=== PATIENT | female | born 1985 ===

== ENCOUNTER 2025-03-09 20:39 | Emergency (ER) | payer BC, SELFPAY ==
--- OUTSIDE RECORDS SUMMARY | 2025-02-02 15:48 | XMS_ITS | Encounter Summary ---
Author Organization [facility] Address [address] [place] [address] Care Team Providers Care English Drawer Name Role Phone Rboerta Russo APRN, C.N.P., D.N.P. Primary Car e Provider Reason for Visit * Reason Comments Abdominal Pain Pt coming in with se mami abdominal pain that started today. Pt nauseous and vomiting. Pain is upper mid abdomen that is consistent. Encounter Details Date Type Department Care Team ([facility] st Contact Info) Description 02/02/2025 3:48 PM CDT - 02/02/2025 8:47 PM CDT Emergency [facility] [address] [place] [address] [phone] Kvng Mares M.D. [address] [place] [phone] Wilberto Jackson M.D. [address] [place] [phone] Gastritis Acute (Primary Dx); Nausea And Vomiting; Dehydration Discharge Disposition: Home or Self Care Social History Tobacco Use Types Packs/Day Years Used Date Smoking Tobacco: Never Passive Smoke Exposure: Current Smokeless Tobacco: Never Tobacco Cessation:Counseling Given: Not Answered Alcohol Use Standard Drinks/Week Comments Yes 3 (1 standard drink = 0.6 oz pur e alcohol) [facility] Utilities Answer Date Recorded In the past 12 months has e electric, gas, oil, or water company threatened to shut off services in your home? No 06/02/2024 Humiliation, Afraid, Rape, and Kick questionnair e Answer Date Recorded Within the last year, have y ou been afraid of your partner or ex-partner? No 05/21/2023 Within the last year, have y ou been humiliated or emotionally abused in other ways by your partner or ex-partner? No Within the last year, have y ou been kicked, hit, slapped, or otherwise physically hurt by your partner or ex-partner? No 05/21/2023 Within the last year, have y ou been raped or forced to have any kind of sexual activity by your partner or ex-partner? No 05/21/2023 Social Connection and Isolat ion Panel [NHANES] Answer Date Recorded In a typical week, how many times do you talk on the phone with family, friends, or neighbors? Twice a week 05/13/2022 How often do you get togethe r with friends or relatives? More than three times a week 05/13/2022 How often do you attend chur ch or sabianist services? More than 4 times per year 05/13/2022 Do you belong to any clubs o r organizations such as zoroastrian groups, unions, fraternal or athletic groups, or school groups? Yes 05/13/2022 How often do you attend meet ings of the clubs or organizations you belong to? More than 4 times per year 05/13/2022 Are you , , di vorced, , never , or living with a partner? Living with partner 05/13/2022 AUDIT-C Answer Date Recorded Q1: How often do you have a drink containing alc ohol? 2-3 times a week 05/13/2022 Q2: How many drinks containi ng alcohol do you have on a typical day when you are drinking? 1 or 2 05/13/2022 Q3: How often do you have si x or more drinks on one occasion? Less than monthly 05/13/2022 Overall Financial Resource Strain (CARDIA) Answe r Date Recorded How hard is it for you to pa y for the very basics like food, housing, medical care, and heating? Not hard at all 05/21/2023 PHQ-2 Answer Date Recorded PHQ-2 Score 0 01/22/2025 [facility] - Occupational Stress Questionnaire Answer Date Recorded Do you feel stress - tense, restless, nervous, or anxious, or unable to sleep at night because your mind is troubled all the time - these days? Only a little 05/13/2022 Exercise Vital Sign Answer Date Recorde d On average, how many days pe r week do you engage in moderate to strenuous exercise (like a brisk walk)? 5 days 06/02/2024 On average, how many minutes do you engage in exercise at this level? 50 min 06/02/2024 Hunger Vital Sign Answer Date Recorded Within the past 12 months, y ou worried that your food would run out before you got the money to buy more. Never true 06/02/20 24 Within the past 12 months, t he food you bought just didn't last and you didn't have money to get more. Never true 06/02/2024 PRAPARE - Transportation Answer Date Re corded In the past 12 months, has l ack of transportation kept you from medical appointments or from getting medications? No 05/06 In the past 12 months, has l ack of transportation kept you from meetings, work, or from getting things needed for daily living? No 06/02/2024 Depression Answer Date Recor ded PHQ-9 Total Score (max 27) 7 12/18 Nutrition Answer Date Recorded On average, how many serving s of fruits and vegetables do you eat per day (serving size is equal to 1 cup or approximately the size of a tennis ball)? 3-5 06/02/2024 Dental Answer Date Recorded Dental: Regular Dentist Yes 12/07/19 21 Employment Answer Date Recorded Employment status Employed and actively working without restrictions 06/02/2024 Housing Stability Answer Date Recorded What is your living situation today? I have a [address] place to live 06/02/2024 Education Answer Date Recorded What is the highest level of school you have completed or the highest degree you have received? 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 - 02/02/2025 8:21 PM CDT You were seen in the Emergency Department today. You were seen for nausea, vomiting, abdominal pain. It is possible that you have viral gastroenteritis (aka: stomach bug), which should resolve in the next few days to a week. Use the nausea medicineas needed to be able to keep down fluids. Start eating a bland diet when your body tells you it is ready. You should return to the ED if you develop abdominal pain, fever > 100.3, black/bloody stoo ls, black/bloody vomiting, cannot keep water ingested, or any other new or concerning symptoms. Make sure to drink plenty of fluids and advance your diet slowly. Congratulations on getting tomorrow!!! * Attachments The following attachments cannot be sent through Care Everywhere. * Gastritis Adult (Omani) * Nausea and Vomiting Adult (Omani) documented in this encounter Medications at Time of Discharge albuterol 90 mcg/actuation inhaler Inhale 2 puffs every 6 (six) hours as needed for shortness of breath. 6.7 g 3 12/20/2024 12:35 PM CDT 5 budesonide-formoter oL (Symbicort) 160-4.5 mcg/actuation inhaler Inhale 2 puffs 2 (two) times a day. Rinse mouth with water after use to reduce aftertaste and incidence of candidiasis. Do not swallow. 10.2 g 11 12/20/2024 10:15 AM CDT 4 buPROPion XL (Wellbutrin XL) 150 mg 24 hr tabletIndications:D epression Major Recurrent Moderate (HCC) Take 1 tablet (150 mg total) by mouth every morning. 90 tablet 3 11/22/2024 12:56 PM HOUSEKEEPER 5 cetirizine (ZyrTEC) 10 mg tablet Take 1 tablet (10 mg total) by mouth daily. 90 tablet 3 1 hydrOXYzine (Atarax) 10 mg tabletIndications:A nxiety Generalized Disorder Take 1 tablet (10 mg total) by mouth 4 (four) times a day as needed for anxiety. 30 tablet 2 11/22/2024 12:56 PM HOUSEKEEPER 5 levonorgestreL (Mirena) 21 mcg/24 hours (8 yrs) 52 mg IUD 1 Intra Uterine Device (1 each total) by intrauterine route continuously. Inserted 02/02/2023 Lot: [id number] 1 each 3 levothyroxine 100 mcg tablet Take 1 tablet (100 mcg total) by mouth daily before morning meal. 90 tablet 3 12/20/2024 10:15 AM CDT 4 09/19/20 25 ondansetron ODT (Zofran-ODT) 4 mg disintegrating tablet Dissolve 1 tablet (4 mg total) in the mouth every 8 (eight) hours as needed for nausea or vomiting. 10 tablet 5 oxyCODONE (Roxicodone) 5 mg immediate release tabletIndications:A cute Pain Take 1-2 tablets (5-10 mg total) by mouth every 6 (six) hours as needed for pain for up to 3 days Indication: Acute Pain. 10 tablet 5 02/06/20 25 documented as of this encounter ED Notes * Kvng Mares M.D. - 02/02/2025 3:50 PM CDT SUBJECTIVE CHIEF COMPLAINT/REASON FOR VISIT Abdominal Pain (Pt coming in with severe abdominal pain that started today. Pt nauseous and vomiting. Pain is upper mid abdomen that is consistent. ) HISTORY OF PRESENT ILLNESS 39-year-old female presents to the emergency department for evaluation of nausea, vomiting, adenopathy or abdominal discomfort. Patient states she felt well yesterday, got up this morning feeling well and went out to breakfast with her significant other at [employer] this morning, eating a scramble including Low, eggs, toast etc.. After leaving, approximately 3 hours later, she began to experience nausea, followed by several episodes of vomiting and increasing abdominal discomfort. Reports subjective fevers no chills. No diarrhea. No dysuria polyuria or hematuria. No new rash has been noted. Pain is described as constant, upper abdomen and around both flanks. Positive nausea, which patient states feels is secondary to her pain. Here for evaluation. History provided by: Patient REVIEW OF SYSTEMS Constitutional: Positive for fever. Negative for chills. HENT: Negative. Respiratory: Negative for cough, chest tightness and shortness of breath. Gastrointestinal: Positive for abdominal pain, nausea and vomiting. Negative for abdominal distention and diarrhea. Genitourinary: Positive for decreased urine volume (Today.). Musculoskeletal: Negative. Skin: Negative for rash and wound. Neurological: Negative for dizziness, light-headedness and headaches. Hematological: Negative. Psychiatric/Behavioral: Negative. OBJECTIVE Initial Vitals Temp -- Pulse Rate 02/02/25 1600 (!) 58 Heart Rate 02/02/25 1630 (!) 53 Resp Rate 02/02/25 1630 19 Blood Pressure 02/02/25 1600 (!) 125/106 SpO2 02/02/25 1600 100 % Pain Score 02/02/25 1606 10 - Worst possible pain PHYSICAL EXAMINATION Constitutional: Nursing note and vitals reviewed. She is cooperative. Non-toxic appearance. She does not have a sickly appearance. She appears ill. She appears distressed. HENT: Head: Normocephalic and atraumatic. Mouth/Throat: Mucous membranes are dry. Neck: Neck supple. Cardiovascular: Normal rate and regular rhythm. Pulmonary/Chest: Effort normal. Abdominal: Soft. Normal appearance and bowel sounds are normal. There is abdominal tenderness (Mildgeneralized). Musculoskeletal: Cervical back: Neck supple. Neurological: Alert. GCS eye subscore is 4. GCS verbal subscore is 5. GCS motor subscore is 6. Skin: Skin is warm and dry. No rash (With particular attention to the dermatomes of the abdomen in area of described pain) noted. Psychiatric: She has a normal mood and affect. ASSESSMENT/PLAN ED Course as of 02/02/25 1905 Luisana February 02, 2025 1634 CBC shows no leukocytosis or anemia. Complete metabolic profile normal, liver function tests normal biliary tract disease unlikely. Electrolytes normal. Lipase normal, pancreatitis unlikely 1640 Patient continues to be nauseous despite Zofran. QTC just under 500 on telemetry monitoring. We will utilize Aloxi in an attempt to improve nausea control 1649 Nausea improved, though pain persists, now localized more to the right lower quadrant. Patientdoes have an IUD, with last period 6 weeks ago she states it is not unusual for her. As ectopic pregnancies in the differential, we will perform a straight catheterization to obtain urine sample to rule out at this time. 1710 UPT negative- ectopic ruled out 1755 CT abdomen pelvis shows findings consistent with a gastritis as well as cholelithiasis. No evidence of gallbladder wall thickening that has noted, no leukocytosis, normal liver function tests, cholecystitis unlikely 1757 Patient continues with intermittent waves of nausea. Zofran and Aloxi administered. We will monitor QT over the next hour, and consider additional antiemetic pending serial evaluation 1800 Patient's heart rate in 40s. Patient does have an aura ring, and review of heart rate trackingdoes not note her rate baseline is in the mid-to-high 40s. 1811 CT scan shows mild gastritis, no other acute abnormalities. Cholelithiasis is noted. 1820 Patient continues to complain of discomfort, though given narcotic analgesic administered, patient will drift off to sleep occasionally and hyperventilate resulting in requirement of small quantity oxygen by nasal cannula. At this time, we will avoid narcotics and utilize Toradol in an attempt to improve patient's pain. 1823 Protonix 80 mg IV to be ordered, a higher dose than standard, as patient has a [id number] ultra rapid metabolizer per [employer] alert. Additionally, we will use oral therapy in addition to the antiemetics currently on board, in an attempt to improve patient's nausea 1899 PT signed out to Dr. Jackson at shift change pending ongoing evaluation and disposition planing Final Diagnoses: as of 02/02/251904 Gastritis Acute Nausea And Vomiting Dehydration Kvng Mares M.D. 02/02/251904 documented in this encounter Plan of Treatment Not on file documented as of this encounter Procedures Procedure Name Priority Date/Time Associated Diagnosis Comments US PELVIS TRANSVAGINAL AND TRANSABDOMINAL WITH DOPPLER RAD - Semiurgent (Fast; most ED patients; some inpatients) 02/02/2025 7:[address] ABDOMEN PELVIS WITH IV CONTRAST RAD - Semiurgent (Fast; most ED patients; some inpatients) 02/02/2025 5:31 PM CDT URINALYSIS WITH MICROSCOPIC IF INDICATED, U STAT 02/02/2025 4:58 PM CDT HC URINALYSIS AUTO W MICRO STAT 02/02/2025 4:58 PM CDT BACTERIAL CULTURE, AEROBIC + SUSC, URINE STAT 02/02/2025 4:58 PM CDT TEST, POCT, U (LAB) STAT 02/02/2025 4:58 PM CDT CBC WITH DIFFERENTIAL, B STAT 02/02/2025 3:59 PM CDT LIPASE, S/P STAT 02/02/2025 3:59 PM CDT COMPREHENSIVE METABOLIC PANEL, S/P STAT 02/02/2025 3:59 PM CDT documented in this encounter Results * US Pelvis Transvaginal and Transabdominal with Doppler (02/02/2025 7:40 PM CDT) Anatomical Region Laterality Modality Pelvis, Ultrasound RST LOS, Ultrasound ARZ LOS, Ultrasound FLA LOS N/A Ultrasound Impressions 02/02/2025 7:44 PM CDT 1. IUD appearing in satisfactory position. 2. Fibroid uterus. Narrative 02/02/2025 7:44 PM CDT REVISED REPORT: EXAM: US PELVIS TRANSVAGINAL AND TRANSABDOMINAL WITH DOPPLER Exam performed with color and spectral Doppler analysis. COMPARISON: CT abdomen and pelvis performed earlier today. TECHNIQUE: Transabdominal and transvaginal. Transvaginal exam performed to better visualize the uterus and/or adnexal regions. FINDINGS: Uterus: 3.2 cm x 5.1 cm x 7.6 cm. Myometrium: 3.3 x 4.7 cm heterogeneous nodule within the inferior uterine body consistent with a fibroid, which appears intramural in location. Endometrium: IUD appearing in satisfactory position, making measurement of the endometrial stripe difficult, but appears within normal limits. Thickness: 3 mm Right ovary: Normal, physiological cysts only. Ovarian volume: 9 ml. Right ovary Doppler: Normal arterial and venous Doppler evaluation, including color flow with spectral waveform. Left ovary: Normal, physiological cysts only. Ovarian volume: 7 ml. Left ovary Doppler: Normal arterial and venous Doppler evaluation, including color flow with spectral waveform Intraperitoneal Fluid: None. Procedure Note Cholo Correia M.D. - 02/12/2025 REVISED REPORT: EXAM: US PELVIS TRANSVAGINAL AND TRANSABDOMINAL WITH DOPPLER Exam performed with color and spectral Doppler analysis. COMPARISON: CT abdomen and pelvis performed earlier today. TECHNIQUE: Transabdominal and transvaginal. Transvaginal exam performed tobetter visualize the uterus and/or adnexal regions. FINDINGS: Uterus: 3.2 cm x 5.1 cm x 7.6 cm. Myometrium: 3.3 x 4.7 cm heterogeneous nodule within the inferior uterinebody consistent with a fibroid, which appears intramural in location. Endometrium: IUD appearing in satisfactory position, making measurement ofthe endometrial stripe difficult, but appears within normal limits.Thickness: 3 mm Right ovary: Normal, physiological cysts only. Ovarian volume: 9 ml. Right ovary Doppler: Normal arterial and venous Doppler evaluation,including color flow with spectral waveform. Left ovary: Normal, physiological cysts only. Ovarian volume: 7 ml. Left ovary Doppler: Normal arterial and venous Doppler evaluation,including color flow with spectral waveform Intraperitoneal Fluid: None. IMPRESSION: 1. IUD appearing in satisfactory position. 2. Fibroid uterus. us Kvng Mares M.D. IMG US PROCEDURES Edited Res ult - Final * CT Abdomen Pelvis with IV Contrast (02/02/2025 5:31 PM CDT) Anatomical Region Laterality Modality Abdomen, Pelvis, Abdominal R ST LOS, Abdominal ARZ LOS, Abdominal FLA LOS N/A Computed Tomography 02/02/2025 5:30 PM CDT Impressions 02/02/2025 5:45 PM CDT 1. Possible mild gastritis. 2. Cholelithiasis. If there is clinical concern for acute gallbladder pathology recommend dedicated right upper quadrant ultrasound for further evaluation. Narrative 02/02/2025 5:45 PM CDT EXAM: CT ABDOMEN PELVIS WITH IV CONTRAST COMPARISON: None FINDINGS: LUNG BASES: Unremarkable. LIVER, GALLBLADDER, BILIARY TREE: Heterogeneous parenchymal enhancement likely on the basis of early portal venous phase bolus timing given normal liver function tests. Indeterminate small nodular foci of arterial hyper enhancement within the liver favored to represent perfusional anomalies or flash filling hemangiomas in a patient of this age without a history of primary malignancy. Cholelithiasis within the nondilated gallbladder. SPLEEN: Unremarkable. PANCREAS: Unremarkable. ADRENAL GLANDS: Unremarkable. KIDNEYS, URETERS, BLADDER: Small left renal hypodensity, likely cyst. Kidneys are otherwise unremarkable without hydronephrosis or urolithiasis. Urinary bladder is unremarkable. PELVIC CONTENTS: IUD within the uterus. Trace pelvic ascites, likely within physiologic limits of normal. GI TRACT: No bowel obstruction. Low-lying cecum. Normal appendix. Nonspecific gastric luminal hyperenhancement which can be seen with mild gastritis. MESENTERY, RETROPERITONEUM: No pathologically enlarged abdominopelvic lymph nodes or significant ascites. VASCULAR: Abdominal aorta is nonaneurysmal with patent proximal major visceral branches. Portal venous system is patent. BODY WALL SOFT TISSUES: Unremarkable. BONES: No acute or aggressive appearing osseous abnormalities. Procedure Note Abhay Gayle M.D. - 02/02/2025 EXAM: CT ABDOMEN PELVIS WITH IV CONTRAST COMPARISON: None FINDINGS: LUNG BASES: Unremarkable. LIVER, GALLBLADDER, BILIARY TREE: Heterogeneous parenchymal enhancementlikely on the basis of early portal venous phase bolus timing given normalliver function tests. Indeterminate small nodular foci of arterial hyperenhancement within the liver favored to represent perfusional anomalies or flash filling hemangiomas iza patient of this age without a history of primary malignancy.Cholelithiasis within the nondilated gallbladder. SPLEEN: Unremarkable. PANCREAS: Unremarkable. ADRENAL GLANDS: Unremarkable. KIDNEYS, URETERS, BLADDER: Small left renal hypodensity, likely cyst.Kidneys are otherwise unremarkable without hydronephrosis or urolithiasis.Urinary bladder is unremarkable. PELVIC CONTENTS: IUD within the uterus. Trace pelvic ascites, likelywithin physiologic limits of normal. GI TRACT: No bowel obstruction. Low-lying cecum. Normal appendix.Nonspecific gastric luminal hyperenhancement which can be seen with mildgastritis. MESENTERY, RETROPERITONEUM: No pathologically enlarged abdominopelviclymph nodes or significant ascites. VASCULAR: Abdominal aorta is nonaneurysmal with patent proximal majorvisceral branches. Portal venous system is patent. BODY WALL SOFT TISSUES: Unremarkable. BONES: No acute or aggressive appearing osseous abnormalities. IMPRESSION: 1. Possible mild gastritis. 2. Cholelithiasis. If there is clinical concern for acute gallbladderpathology recommend dedicated right upper quadrant ultrasound for furtherevaluation. Kvng Mares M.D. IM CT PROCEDURES Final Resu lt * (ABNORMAL) Microscopic Manual (02/02/2025 4:58 PM CDT) White Blood Cells Occ-3 /hpf 02/02/2025 5:11 PM CDT NPRG Comment: ----REFERENCE VALUE---- Males: 0-3 Females: 0-10 Unknown: 0-10 Red Blood Cells None Seen 0 - 2 /hpf 02/02/2025 5:11 PM CDT NPRG Crystals Amorphous( A) None Seen /lpf 02/02/2025 5:11 PM CDT NPRG Squamous Cells Occ-3 /hpf 02/02/2025 5:11 PM CDT NPRG Urine 02/02/2025 4:58 PM CDT 02/02/2025 4:58 PM CDT us Kandis Martinez APRN, C.N.P. LAB URINE ORDERABLES Final Result Performing Organization Address City/[facility]/ZIP Co de Phone Number [facility] [address] [place] [address], [facility] NPRG [address] [address] * Test, POCT, Urine (Lab) (02/02/2025 4:58 PM CDT) Test, POCT, U Negative 02/02/2025 5:07 PM CDT NPRG Urine (Urine, Straight Catheter) 02/02/2025 4:58 PM CDT 02/02/2025 4:59 PM CDT us Kvng Mares M.D. LAB POCT ORDERABLES - DEVICE Final Result Performing Organization Address [facility]/ZIP Co de Phone Number [facility] [address] [place] [address], [facility] NPRG [address] [address] * Bacterial Culture, Aerobic + Susceptibility, Urine (02/02/2025 4:58 PM CDT) Urine Culture No growth after 1 day of incubation. 02/03/2025 3:50 PM CDT MKTO Urine (Urine, Midstream) 02/02/2025 4:58 PM CDT 02/02/2025 10:49 PM CDT Comment:Specimen Source Site : Urine us Kvng Mares M.D. LAB MICROBIOLOGY - GENERAL O RDERABLES Final Result [facility] [address] [place] [address], [facility] MKTO [facility] [place] [address] [place] [address] * (ABNORMAL) Urinalysis with Microscopic if Indicated: Urine, Midstream (02/02/2025 4:58 PM CDT) Source Urine, Urine, Midstream 02/02/2025 4:59 PM CDT NPRG Clarity Slightly Cloudy(A) Clear 02/02/2025 5:03 PM CDT NPRG Color Yellow 02/02/2025 5:03 PM CDT NPRG Comment: ----REFERENCE VALUE---- Colorless Yellow Gianna Blood Negative Negative 02/02/2025 5:03 PM CDT NPRG Nitrite Negative Negative 02/02/2025 5:03 PM CDT NPRG Leukocyte Esterase Negative Negative 02/02/2025 5:03 PM CDT NPRG Protein Negative mg/dL 02/02/2025 5:03 PM CDT NPRG Comment: ----REFERENCE VALUE---- Negative Trace Glucose Negative Negative mg/dL 02/02/2025 5:03 PM CDT NPRG Ketones, QI(U) 40(A) Negative mg/dL 02/02/2025 5:03 PM CDT NPRG Bilirubin Negative Negative 02/02/2025 5:03 PM CDT NPRG pH 8.5(A) 5.0 - 8.0 02/02/2025 5:03 PM CDT NPRG Specific Gaines 1.020 1.001 - 1.035 02/02/2025 5:03 PM CDT NPRG Urobilinogen 0.2 0.2 - 1.0 mg/dL 02/02/2025 5:03 PM CDT NPRG Urine (Urine, Midstream) 02/02/2025 4:58 PM CDT 02/02/2025 4:58 PM CDT us Kvng Mares M.D. LAB URINE ORDERABLES Final R esult Performing Organization Address City/[facility]/ZIP Co de Phone Number [facility] [address] [place] [id number], [facility] NPRG [address] [address] * Lipase (02/02/2025 3:59 PM CDT) Lipase, P 26 13 - 60 U/L 02/02/2025 4: 20 PM CDT NPRG Blood (Blood, Venous) 02/02/2025 3:59 PM CDT 02/02/2025 4:01 PM CDT Kvng Mares M.D. LAB BLOOD ADD-ON Final Resul t Performing Organization Address [facility] Co de Phone Number [facility] [address] [place] [id number], [facility] [facility] [address] [address] * Comprehensive Metabolic Panel (02/02/2025 3:59 PM CDT) Potassium, P 4.2 3.6 - 5.2 mmol/L 02/02/2025 4:20 PM CDT NPR[facility] Sodium, P 142 135 - 145 mmol/L 02/02/2025 4:20 PM CDT NPR[facility] Chloride, P 104 98 - 107 mmol/L 02/02/2025 4:20 PM CDT NPR[facility] Bicarbonate, P 24 22 - 29 mmol/L 02/02/2025 4:20 PM CDT NPRG Anion Gap, P 14 7 - 15 02/02/2025 4:20 PM CDT NPR[facility] BUN (Blood Urea Nitrogen), P 11 6 - 21 mg/dL 02/02/2025 4:20 PM CDT NPRG Creatinine 0.73 0.59 - 1.04 mg/dL 02/02/2025 4:20 PM CDT NPRG Estimated GFR (eGFR) >90 >=60 mL/min/BS A 02/02/2025 4:20 PM CDT NPRG Comment: Estimated GFR calculated using the 2020 CKD_EPI creatinine equation. Calcium, Total, P 9.7 8.6 - 10.0 mg/dL 02/02/2025 4:20 PM CDT NPRG Glucose, P 123 70 - 140 mg/dL 02/02/2025 4:20 PM CDT NPRG Protein, Total, P 7.3 6.3 - 7.9 g/dL 02/02/2025 4:20 PM CDT NPRG Albumin, P 4.8 3.5 - 5.0 g/dL 02/02/2025 4:20 PM CDT NPRG Aspartate Aminotransferase (AST), P 28 8 - 43 U/L 02/02/2025 4:20 PM CDT NPRG Alkaline Phosphatase, P 71 35 - 104 U/L 02/02/2025 4:20 PM CDT NPRG Alanine Aminotransferase (ALT), P 25 7 - 45 U/L 02/02/2025 4:20 PM CDT NPRG Bilirubin, Total, P 0.5 0.0 - 1.2 mg/dL 02/02/2025 4:20 PM CDT NPRG Blood (Blood, Venous) 02/02/2025 3:59 PM CDT 02/02/2025 4:01 PM CDT us Kvng Mares M.D. LAB BLOOD ADD-ON Final Resul t [facility] [address] [place] [address], [facility] [place] [address] [place] [address] * (ABNORMAL) CBC with Differential, Blood (02/02/2025 3:59 PM CDT) Hemoglobin 15.0 11.6 - 15.0 g/dL 02/02/2025 4:04 PM CDT NPRG Hematocrit 43.7 35.5 - 44.9 % 02/02/2025 4:04 PM CDT NPRG Erythrocytes 4.86 3.92 - 5.13 x10(12)/L 02/02/2025 4:04 PM CDT NPRG MCV 89.9 78.2 - 97.9 fL 02/02/2025 4:04 PM CDT NPRG RBC Distrib Width 12.4 12.2 - 16.1 % 02/02/2025 4:04 PM CDT NPRG Platelet Count 258 157 - 371 x10(9)/L 02/02/2025 4:04 PM CDT NPRG Leukocytes 8.3 3.4 - 9.6 x10(9)/L 02/02/2025 4:04 PM CDT NPRG Neutrophils 6.77(H) 1.56 - 6.45 x10(9)/L 02/02/2025 4:04 PM CDT NPRG Lymphocytes 1.11 0.95 - 3.07 x10(9)/L 02/02/2025 4:04 PM CDT NPRG Monocytes 0.32 0.26 - 0.81 x10(9)/L 02/02/2025 4:04 PM CDT NPRG Eosinophils 0.04 0.03 - 0.48 x10(9)/L 02/02/2025 4:04 PM CDT NPRG Basophils <0.04 0.01 - 0.08 x10(9)/L 02/02/2025 4:04 PM CDT NPRG Blood (Blood, Venous) 02/02/2025 3:59 PM CDT 02/02/2025 4:01 PM CDT us Kvng Mares M.D. LAB BLOOD ADD-ON Final Resul t [facility] [address] [place] [address], [facility] [address] [place] [address] documented in this encounter Visit Diagnoses Diagnosis Gastritis Acute- Primary Nausea And Vomiting Dehydration documented in this encounter Administered Medications Inactive Administered Medications - up to 3 most recent administrations Medication Order MAR Action Action Date Dose Rate Site fentaNYL injection 50 mcg (Sublimaze) 50 mcg, intravenous, Once, On [place] 02/02/25 at 1551, For 1 dose Given 02/02/2025 4:00 PM CDT 50 mcg iohexoL 300 mg iodine/mL solution 0-200 mL (Omnipaque) 0-200 mL, intravenous, Once in imaging, contrast, Starting on [place] 02/02/25 at 1733, For 1 dose Given 02/02/2025 5:34 PM CDT 140 mL ketorolac injection 15 mg (ToradoL) 15 mg, intravenous, Once, On [place] 02/02/25 at 1821, For 1 dose, Adult IV push rate: Over 15 seconds. Peds IV push rate: Over 1 minute. Doses > 15 mg IV/IM are discouraged due to lack of additional analgesic benefit. Given 02/02/2025 6:22 PM CDT 15 mg morphine injection 4 mg 4 mg, intravenous, Once, On [place] 02/02/25 at 1627, For 1 dose Given 02/02/2025 4:27 PM CDT 4 mg morphine injection 4 mg 4 mg, intravenous, Once, On [place] 02/02/25 at 1714, For 1 dose Given 02/02/2025 5:15 PM CDT 4 mg NaCl 0.9 % bolus 1,000 mL 1,000 mL, intravenous, at 1,000 mL/hr, Administer over 1 Hours, Once, On [place] 02/02/25 at 1623, For 1 dose New Bag 02/02/2025 4:26 PM CDT 1,000 mL 1000 mL/hr NaCl 0.9% infusion 250 mL/hr, intravenous, Continuous, Starting on [place] 02/02/25 at 1756 Rate/Dose Verify 02/02/2025 7:56 PM CDT 250 mL/hr 250 mL/hr New Bag 02/02/2025 5:56 PM CDT 250 mL/hr 250 mL/hr ondansetron (PF) injection 4 mg (Zofran) 4 mg, intravenous, Once, On [place] 02/02/25 at 1551, For 1 dose Given 02/02/2025 4:04 PM CDT 4 mg palonosetron injection 0.25 mg (Aloxi) 0.25 mg, intravenous, Once, On [place] 02/02/25 at 1639, For 1 dose Given 02/02/2025 4:58 PM CDT 0.25 mg pantoprazole 80 mg in NaCl 0.9% IVPB (Protonix) 80 mg, intravenous, at 200 mL/hr, Administer over 30 Minutes, Once, On [place] 02/02/25 at 1824, For 1 dose New Bag 02/02/2025 7:29 PM CDT 80 mg 200 mL/hr sodium chloride 0.9 % flush 100 mL 100 mL, intravenous, Once in imaging, line care, for CT Exam, Starting on [place] 02/02/25 at 1733, For 1 dose Given 02/02/2025 5:33 PM CDT 100 mL sodium chloride 0.9 % injection 10 mL 10 mL, intravenous, As needed, line care, Starting on [place] 02/02/25 at 1550, Peripheral Intravenous Catheter and Rapid Infusion Catheter, prior to blood sampling, post blood transfusion or post blood sampling sodium chloride 0.9 % injection 10 mL 10 mL, intravenous, Once in imaging, line care, Starting on [place] 02/02/25 at 1733, For 1 dose Given 02/02/2025 5:33 PM CDT 10 mL sodium chloride 0.9 % injection 3 mL 3 mL, intravenous, As needed, line care, Starting on [place] 02/02/25 at 1550, Prior to and following infusion and between multiple consecutive infusions: sodium chloride 0.9 % injection sodium chloride 0.9 % injection 3 mL 3 mL, intravenous, Every 12 hours scheduled, First dose on [place] 02/02/25 at 2100, Peripheral Intravenous Catheter and Rapid Infusion Catheter, when no infusion to maintain patency documented in this encounter Active and Recently Administered Medications Times are shown in CDT. Scheduled Medication Order 01/31/2025 02/01/2025 02/02/2025 fentaNYL injection 50 mcg (Sublimaze) (COMPLETED) 50 mcg, intravenous, Once, On [place] 02/02/25 at 1551, For 1 dose 1600 (Given - Provid er: Leah Cardenas R.N.) ketorolac injection 15 mg (ToradoL) (COMPLETED) 15 mg, intravenous, Once, On [place] 02/02/25 at 1821, For 1 dose, Adult IV push rate: Over 15 seconds. Peds IV push rate: Over 1 minute. Doses > 15 mg IV/IM are discouraged due to lack of additional analgesic benefit. 1822 (Given - Provid er: Rosa Elena Sinclair R.N.) morphine injection 4 mg (COMPLETED) 4 mg, intravenous, Once, On [place] 02/02/25 at 1627, For 1 dose 1627 (Given - Provid er: Rosa Elena Sinclair R.N.) morphine injection 4 mg (COMPLETED) 4 mg, intravenous, Once, On [place] 02/02/25 at 1714, For 1 dose 1715 (Given - Provid er: Leah Cardenas R.N.) NaCl 0.9 % bolus 1,000 mL (COMPLETED) 1,000 mL, intravenous, at 1,000 mL/hr, Administer over 1 Hours, Once, On [place] 02/02/25 at 1623, For 1 dose 1626 (New Bag - Prov ider: Rosa Elena Sinclair R.N.)1717 (Stopped - Provider: Leah Cardenas R.N.) ondansetron (PF) injection 4 mg (Zofran) (COMPLETED) 4 mg, intravenous, Once, On [place] 02/02/25 at 1551, For 1 dose 1604 (Given - Provid er: Leah Cardenas R.N. - Comment: double verified with [id number]) palonosetron injection 0.25 mg (Aloxi) (COMPLETED) 0.25 mg, intravenous, Once, On [place] 02/02/25 at 1639, For 1 dose 1658 (Given - Provid er: Rosa Elena Sinclair R.N.) pantoprazole 80 mg in NaCl 0.9% IVPB (Protonix) (COMPLETED) 80 mg, intravenous, at 200 mL/hr, Administer over 30 Minutes, Once, On [place] 02/02/25 at 1824, For 1 dose 1929 (New Bag - Prov ider: Jackie Subramanian R.N.)2010 (Stopped - Provider: Jackie Subramanian R.N.) sodium chloride 0.9 % injection 3 mL 3 mL, intravenous, Every 12 hours scheduled, First dose on [place] 02/02/25 at 2100, Peripheral Intravenous Catheter and Rapid Infusion Catheter, when no infusion to maintain patency 2006 (Not Given - Pr ovider: Jackie Subramanian R.N. - Reason: Other - Comment: fluids infusing) Continuous Medication Order 01/31/2025 02/01/2025 02/02/2025 NaCl 0.9% infusion 250 mL/hr, intravenous, Continuous, Starting on [place] 02/02/25 at 1756 1756 (New Bag - Prov ider: Rosa Elena Sinclair R.N.)1955 (Rate/Dose Verify - Provider: Jackie Subramanian R.N.)2035 (Stopped - Provider: Jackie Subramanian R.N.) PRN Medication Order 01/31/2025 02/01/2025 02/02/2025 iohexoL 300 mg iodine/mL solution 0-200 mL (Omnipaque) (COMPLETED) 0-200 mL, intravenous, Once in imaging, contrast, Starting on [place] 02/02/25 at 1733, For 1 dose 1734 (Given - Provid er: Manoj Goodrich(R)(CT), R.TShannen(R)) sodium chloride 0.9 % flush 100 mL (COMPLETED) 100 mL, intravenous, Once in imaging, line care, for CT Exam, Starting on [place] 02/02/25 at 1733, For 1 dose 1733 (Given - Provid er: Manoj Goodrich(R)(CT), R.T.(R)) sodium chloride 0.9 % injection 10 mL 10 mL, intravenous, As needed, line care, Starting on [place] 02/02/25 at 1550, Peripheral Intravenous Catheter and Rapid Infusion Catheter, prior to blood sampling, post blood transfusion or post blood sampling sodium chloride 0.9 % injection 10 mL (COMPLETED) 10 mL, intravenous, Once in imaging, line care, Starting on [place] 02/02/25 at 1733, For 1 dose 1733 (Given - Provid er: Manoj Goodrich(R)(CT), R.T.(R)) sodium chloride 0.9 % injection 3 mL 3 mL, intravenous, As needed, line care, Starting on [place] 02/02/25 at 1550, Prior to and following infusion and between multiple consecutive infusions: sodium chloride 0.9 % injection documented in this encounter Additional Health Concerns Assessment Noted Time PHQ-9 Depression Total Score: 7 12/19/19 25 4:48 PM CDT documented as of this encounter Care Teams English Drawer Relationship Specialty Start Date End Date Roberta Russo APRN, C.N.P., D.N.P. [address] [place] [address] PCP - General 06/29/24 documented as of this encounter
--- OUTSIDE RECORDS SUMMARY | 2025-03-09 20:41 | XMS_ITS | Clinical Summary ---
Author Organization [facility] Address [address] [place] [address] Care Team Providers Care Telescope Maintenance Name Role Phone Roberta Russo APRN, C.N.P., D.N.P. Primary Car e Provider Source Comments Patient records contain information from all sites at [facility]. For routine questions regarding patient records, call [phone] during business hours, M-F 8:00 AM - 5:00 PM Central Time. Record requests for emergency care only can be directed to [phone] at any time.[facility] Allergies Active Allergy Reactions Criticality Noted Date Comments Madison Rash 10/14/2016 Nickel Other (see comments) 10/14/2016 exacerbates eczema Medications * This document contains information received from the source organization and may not represent a complete record from that organization. cetirizine (ZyrTEC) 10 mg tablet Take 1 tablet (10 mg total) by mouth daily. 90 tablet 3 10/19/19 21 Active levonorgestreL (Mirena) 21 mcg/24 hours (8 yrs) 52 mg IUD 1 Intra Uterine Device (1 each total) by intrauterine route continuously. Inserted 02/02/2023 Lot: [id number] 1 each 02/03/20 23 Active budesonide-formote roL (Symbicort) 160-4.5 mcg/actuation inhaler Inhale 2 puffs 2 (two) times a day. Rinse mouth with water after use to reduce aftertaste and incidence of candidiasis. Do not swallow. 10.2 g 11 5 10:15 AM CDT 04/29/20 24 Active levothyroxine 100 mcg tablet Take 1 tablet (100 mcg total) by mouth daily before morning meal. 90 tablet 3 5 10:15 AM CDT 09/19/20 24 025 Active buPROPion XL (Wellbutrin XL) 150 mg 24 hr tabletIndications: Depression Major Recurrent Moderate (HCC) Take 1 tablet (150 mg total) by mouth every morning. 90 tablet 3 5 12:56 PM CATEGORY DEVELOPMENT ANALYST 11/21/19 25 Active hydrOXYzine (Atarax) 10 mg tabletIndications: Anxiety Generalized Disorder Take 1 tablet (10 mg total) by mouth 4 (four) times a day as needed for anxiety. 30 tablet 2 5 12:56 PM CATEGORY DEVELOPMENT ANALYST 11/21/19 25 Active albuterol 90 mcg/actuation inhaler Inhale 2 puffs every 6 (six) hours as needed for shortness of breath. 6.7 g 3 5 12:35 PM CDT 12/20/19 25 Active ondansetron ODT (Zofran-ODT) 4 mg disintegrating tablet Dissolve 1 tablet (4 mg total) in the mouth every 8 (eight) hours as needed for nausea or vomiting. 10 tablet 02/03/20 25 Active Active Problems Problem Noted Date Diagnosed Date Depression Major Recurrent Moderate 11/21/2024 Overview (12/19/2024): 11/21/2024: PHQ-9: 11, RAMU-7: 15. She reports worsening symptoms of depression and anxiety, especially over the last 1 month. She had weaned herself off of her Wellbutrin 150 mg last April and had completed therapy, she was feeling better mood cruz. However, she has had recent increased stressors such as the of her cat, having to move, and changing jobs. She endorses disturbed sleep, increased rumination, feeling overwhelmed, and increased anxiety. She is hoping to get back on her Wellbutrin as this was helpful and possibly restart therapy. She denied any thoughts of self-harm or suicide. 12/19/2024: PHQ-9: 7, RAMU-7: 3. Continues on Wellbutrin 150 mg for the past 1 month, notes significant improvement in mood and anxiety. She still does have some underlying anxiety but she has been trying to manage with coping mechanisms including mindful meditation and doing things she enjoys. She has noted some mild sleep disturbance and night sweats with the Wellbutrin. Denies any thoughts of self- harm or suicide. Assessment & Plan (12/19/2024 3:49 PM CDT): Plan: Reassuring to note that her mood has responded well to the Wellbutrin. Continue on current regimen, utilize hydroxyzine as needed, especially with difficulty sleeping. Will plan to follow back via portal in 1 month to reassess how things are going, she will reach out to me sooner if necessary for any concerns. Continue to encourage her to utilize the Pairin brianna and practicing mindful meditation. She is aware of crisis resources. She is in agreement with this plan and will follow back with any concerns in the interim. Assessment & Plan (11/21/2024 4:27 PM CATEGORY DEVELOPMENT ANALYST): Plan: Thanked Joanne for coming in today to discuss concerns of mood. Reviewed management of symptoms include a multimodal approach, with psychotherapy and pharmacotherapy. Discussed restarting therapy with her previous clinic at [facility] which she will be contacting. Given that she had great resolution of her symptoms previously with Wellbutrin, restarted her on 150 mg, reviewed efficacy, side effects, mechanisms of action. For ongoing anxiety concern, provided her with a script for hydroxyzine 10 mg as needed. Reviewed crisis resources. Follow up in 4 weeks to reassess efficacy of current regimen. At that time, can consider increasing Wellbutrin to 300 mg if needed. She is in agreement with this plan and will follow back with any concerns. Overweight Body Mass Index 25-29.9 Adult 025 Overview (11/21/2024): 11/21/2024: Most recent BMI in September 2024 was 29.6. She was on Wegovy 1.7 mg for quite some time but had discontinued about 5 weeks ago as she had significant nausea. She notes that she has been able to maintain her current weight and has even lost some weight since discontinuing. She would like to be off of the Wegovy therapy and continue lifestyle management of weight. She continues to eat a healthy, well-balanced diet and moderate aerobic exercise. She feels that she has approached her weight goal and she is happy about this. Assessment & Plan (11/21/2024 4:30 PM CATEGORY DEVELOPMENT ANALYST): Plan: Congratulated Joanne on her ongoing weight loss. Given that she has been symptomatic on the Wegovy, it is reasonable to discontinue therapy at this time. Discussed that if she would like to restart therapy, we would have to restart back at 0.25 mg. She will continue lifestyle management of weight but eating a healthy, well-balanced diet and moderate aerobic exercise 5 times a week for least 30 minutes. She is in agreement with this and will follow back with any concerns. Pain Hip Right 06/02/2024 Overview (06/02/2024): 06/02/24 Joanne has been training for a backpacking trip in August. She was walking 4 days a week for 4-5 miles, and 6 weeks ago began to use a day pack with added weight during these walks. She began to develop pain in her right hip, and then backed off of the added weight and then off of the walking. This Thursday, 2 days ago, she walked for the 1st time in a week, and that night could not sleep due to pain. The pain is in her right hip flexor, and is accompanied by tightness in her ipsilateral lower back, lateral and frontal quad. It does not radiate. Denies trauma, falls, swelling, numbness, tingling, or weakness. Assessment & Plan (06/02/2024 11:02 AM CDT): Joanne has tendinitis in her R hip flexor from her recent training. She should attend physical therapy. If her symptoms do not improve in 6-8 weeks, or if she develops new or worsening symptoms, I recommend her to follow up for further evaluation including imaging with XRAY of her hip and pelvis. In the meantime, she can use ibuprofen, Tylenol, Voltaren gel, icy hot, and/or ice for pain. Lump In The Right Breast Unspecified Quadrant Overview (11/12/2023): 11/12/2023: Joanne endorses feeling a lump in her right breast 3 days ago while in the shower. She denies any breast pain or tenderness, apart from when she presses on the lump directly. She denies any skin or nipple changes, swelling or erythema, or discharge or drainage from the nipple. Denies any personal or family history of breast cancer, has a personal history of papillary thyroid cancer, with a partial removal of her thyroid. She has not currently on her menses, has had in IUD in place since February of last year and has occasional spotting, last episode was September 2023. Does not normally have breast changes on her menses, would only experience slight breast tenderness. She also notes that she has been taking Wegovy for the past 5 months and has had a 13 kg weight loss, shares that her breast size has fluctuated since, has stopped wearing underwire bras and has started wearing sports bras. Assessment & Plan (11/12/2023 9:48 AM CATEGORY DEVELOPMENT ANALYST): Plan: A small, hard, fixed lump was noted at the 9 o'clock region, 6 cm to the right of the nipple line. The mass was nontender. Orders placed for an ultrasound of the breast and tomography. Discussed if there is any concerning findings, will plan to refer her to the breast Clinic for further evaluations. She is in agreement with this plan and will follow back with any concerns in the interim. Insertion Intrauterine Device 02/02/2023 Assessment & Plan (02/02/2023 8:28 AM CDT): Joanne would like to proceed with a Mirena IUD. She has no contraindications for IUD placement. test negative. Discussed irregular bleeding/spotting can be normal for up to 6 months. Discussed signs and symptoms which would warrant a return evaluation including, but not limited to: heavy bleeding, unusual discharge, significant cramping, evidence of device expulsion, post-coital bleeding, dyspareunia, or other new/severe symptoms. The IUD should be removed or replaced within 8 years. The IUD is considered effective in 7 days She may use tampons if she would like. She was counseled to check the strings once per month. She was counseled that the IUD does not protect against sexually transmitted disease and she should use barrier with every sexual encounter unless she is in a long chain quiller tender monogamous relationship. Cancer Thyroid Papillary Personal History 2018 Anxiety Generalized Disorder 02/11/2018 Overview (12/19/2024): 11/21/2024: RAMU-7:15. 11/23/2024: Presents with concerns of a panic attack yesterday evening that lasted for 15 minutes. She felt very overwhelmed and reports anxiety was so severe she could not function. She had taken the hydroxyzine 10 mg which was helpful in managing her symptoms but had made her feel drowsy and had gone to sleep. She continues to feel slight anxiety today and agitation. She is worried about taking the hydroxyzine again given that immunize feel that drowsy. She does state that she had started the Wellbutrin 150 mg that she was prescribed yesterday afternoon around 1:00 p.m.. She has been on this previously but did not have panic attacks if this medication in the past. She also had shared the other day that her Synthroid manufacture had changed and was advised to keep an eye out for any possible symptoms, she started the new manufacture pills about 1 week ago. 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 She denies any recent illnesses, palpitations, shortness for breath or chest pain. 12/19/2024: RAMU-7: 3. Anxiety has improved with the Wellbutrin, no longer having panic attacks. Assessment & Plan (12/19/2024 3:50 PM CDT): Plan: See plan above. Assessment & Plan (11/23/2024 11:01 AM CATEGORY DEVELOPMENT ANALYST): Plan: Symptoms and presentation seem consistent with an anxiety/panic attack. Discussed with her at the last visit and again today that the Wellbutrin does have the propensity to increased anxiety which she is aware of. It is reassuring to note that the hydroxyzine was helpful. Provided her with a work note for the next few days to continue to monitor symptoms and utilize hydroxyzine as needed to help manage lingering anxiety effects. TSH and ECG ordered to rule out any underlying cause of symptoms, will contact patient with results and manage accordingly. She would like to continue on the Wellbutrin for the next several weeks and continuing monitor, discussed if that her anxiety continues to be bothersome, could consider adding on BuSpar 7.5 mg b.i.d. then increasing to 10 mg b.i.d. or discontinuing the Wellbutrin and considering restarting Lexapro. Discussed ways to manage anxiety with coping mechanism. Discussed strict return precautions for urgent evaluation. She is in agreement with this plan and will follow back with any concerns. Assessment & Plan (11/21/2024 4:27 PM CATEGORY DEVELOPMENT ANALYST): Plan: See plan above. Asthma Mild Intermittent 09/02/2016 Resolved Problems Problem Noted Date Diagnosed Date Resolved Date Nodule Thyroid 08/04/2019 08/05/2019 Cellulitis Arm Right 06/09/2019 019 Assessment & Plan (06/09/2019 12:22 PM CDT): I discussed with the patient I felt it was best to start her on an antibiotic with activity against pasteurella given that her injury was secondary to a cat bite/scratch. She is in agreement. I am going to place her on Augmentin 8751 twice daily for 10 days and use of Bactroban to the wound. If she would note increasing pain, lack of improvement or systemic symptoms she will report to the emergency department. Encounters Date Type Department Care Team Description 02/02/2025 3:48 PM CDT - 02/02/2025 8:47 PM CDT Emergency [facility] [address] [place] [phone] Kvng Mares M.D. Scharrer, Erik A, M.D. Gastritis Acute (Primary Dx); Nausea And Vomiting; Dehydration Discharge Disposition: Home or Self Care 12/19/2024 3:30 PM CDT Office Visit Department of Family Medicine, [facility], in [place], [place] [address] [place] [address] Roberta Russo APRN, C.N.P., D.N.P. Depression Major Recurrent Moderate (HCC); Anxiety Generalized Disorder 12/18/2024 Refill [facility], [facility] in [place], [place] [address] [place] [address] Jayden Beavers M.D. Med Refill from Last 3 Months Immunizations Immunization Administration Dates Next Due 4vHPV (discontinued) 09/02/2010,05/05/20 09,02/02/2009,2007 DTaP (Infanrix, [employer]) 07/20/1992,,04/22/1988,1987,1987 HPV, Unspecified 05/05/2009,02/02/2009 HepB Adult 06/19/2006,12/24/2005,11/26/2005 HepB, Unspecified 06/19/2006,12/24/2005,11/26/19 06 Influenza, Unspecified 10/02/2015(Deferred: Othe r) MMR 09/05/1999,04/14/1989 OPV 09/19/1989, 8,02/21/1988,1987 PCV20 08/04/2022 PPSV23 06/26/2009 SARS-COV-2 (COVID-19) - MODE RNA (12 YEARS AND OLDER) Fall Seasonal 08/10/2024,07/28/2023 SARS-COV-2 (COVID-19) - PFIZ ER (Discontinued)(12 years or older) 07/02/2021,11/05/2020,10/15/2020 SARS-COV-2 (COVID-19) - PFIZ ER BIVALENT TS(Discontinued)(12 YEARS OR OLDER) 07/31/2022 Td (Adult), adsorbed 09/05/1999 Td Preservative Free (TENIVA C, DECAVAC) 08/25/2018 Td, (Adult) Unspecified 09/05/1999 Tdap 07/25/2008 influenza trivalent vaccine (6 months and older)(PF) 08/10/2024,08/05/2011,08/01/2010,2008,07/25/2008,08/04/2007 influenza vaccine quad (FLUZONE/FLUARIX) (6 months and older)(PF) 07/28/2023,07/31/2022,08/05/2021,2019,08/18/2019,07/27/2018 Family History Medical History Relation Name Comments Psoriasis Brother 2 No Known Problems Father Heart attack Maternal Grandfather Leukemia Maternal Grandmother 1 Malorie Age 5 0 Other cancer Maternal Grandmother 1 Malorie Uteri ne leiomyosarcoma Other cancer Maternal Grandmother 2 Malorie Uteri ne leiomyosarcoma Anemia Mother 1 Gloria Abigail Asthma Mother 1 Gloria Abigail Rheum arthritis Mother 1 Gloria Abigail Thyroid nodule Mother 1 Gloria Abigail Anemia Mother 2 Gloria Abigail Asthma Mother 2 Gloria Abigail Rheum arthritis Mother 2 Gloria Abigail Thyroid nodule Mother 2 Gloria Abigail Lupus Mother's Brother Relation Name Status Comments Brother 2 Alive Father Alive Maternal Grandfather (Age 67) Maternal Grandmother 1 Malorie (Age 54) Maternal Grandmother 2 Malorie Alive Mother 1 Gloria Abigail Alive Mother 2 Gloria Abigail Alive Mother's Brother Alive Paternal Grandfather Paternal Grandmother (Age 80) Social History Tobacco Use Types Packs/Day Years Used Date Smoking Tobacco: Never Passive Smoke Exposure: Current Smokeless Tobacco: Never Tobacco Cessation:Counseling Given: Not Answered Alcohol Use Standard Drinks/Week Comments Yes 3 (1 standard drink = 0.6 oz pur e alcohol) [facility] Utilities Answer Date Recorded In the past 12 months has e [employer], gas, oil, or water [employer] threatened to shut off services in your [...] 05/13/2022 How often do you attend chur or mormon services? More than 4 times per year 05/13/2022 Do you belong to any clubs o r organizations such as jew groups, unions, fraternal or athletic groups, or [...] Answer Date Recorded PHQ-2 Score 0 01/22/2025 [facility] [place] [facility] Occup[facility] ional [facility] - Occupational Stress [...] Date Recorded Dental: Regular Dentist Yes 12/07/19 Employment Answer Date Recorded Employment status Employed and actively working without restrictions 06/02/2024 Housing Stability Answer Date Recorded What is your living situation today? I have a [facility] place to live 06/02/2024 Education Answer Date Recorded What is the highest level of school you have completed or the highest degree you have received? 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 Not on file Not on file Not on file Last Filed Vital Signs Vital Sign Reading Time Taken Comments Blood Pressure 108/65 02/02/2025 8:30 PM CDT Pulse 55 02/02/2025 8:42 PM CDT Temperature 36.7 C (98.1 F) 02/02/2025 7:45 PM CDT Respiratory Rate 16 02/02/2025 8:42 PM CDT Oxygen Saturation 98% 02/02/2025 8:42 PM CDT Inhaled Oxygen Concentration - - Weight 81.9 kg (180 lb 8 oz) 02/02/2025 4:07 PM CDT Height 167.5 cm (5' 5.95) 12/19/2024 3:30 PM CD T Body Mass Index 29.18 12/19/2024 3:30 PM CDT Plan of Treatment Health Maintenance Due Date Last Done Comments Hepatitis C Screening 1987 Depression Monitoring (PHQ-9) 04/19/2025 12/18/2024 Asthma Control Test Questionnaire 11/21/2025 025 Asthma Management/Exacerbati on Questionnaire (AMQ/AEQ) 11/21/2025 11/21/2024, 11/10/2023 Thyroid Stimulating Hormone (TSH) test for thyroid function 11/23/2025 11/23/2024, 09/19/2024, 04/18/2024, Additional history exists DTaP,Tdap,and Td Vaccines (8 - Td or Tdap) 08/25/2028 08/25/2018, 07/25/2008, 09/05/1999, Additional history exists Cervical/Vaginal Cancer Screening 08/27/2029 08/27/2024, 08/27/2024, 08/02/2019, Additional history exists Lipid (Cholesterol) Screening 08/27/2029 08/27/2024, 08/03/2019 IPV Vaccines Completed 09/19/1989, 04/04, 02/21/1988, Additional history exists Hepatitis B Vaccines Completed 06/19/2006, 06/19/2006, 12/24/2005, Additional history exists HPV Vaccines Completed 09/02/2010, 0810/2008, 05/05/2009, Additional history exists HIV Screening Completed 08/03/2019 Pneumococcal vaccine (0-49 years) Completed 022, 06/26/2009 COVID-19 Vaccine Completed 08/10/2024, , 07/31/2022, Additional history exists Influenza Vaccine Completed 08/10/2024, , 07/31/2022, Additional history exists Depression Monitoring (PHQ-9 for quality tracking) Completed 11/23/2024 Medical Devices Implanted Type Area Performance Improvement Specialist Device Identifier Shelf Expiration Date Model / Serial / Lot Mirena-02/03/20 23 Implanted:10/2022 by Carmen Delatorre APRN C.N.P., M.S.N. (Quantity not on file) Intrauterine Device Uterus / / [id number] Explanted Type Area Performance Improvement Specialist Device Identifier Shelf Expiration Date Model / Serial / Lot Conversions - Default Historical Implant Device Implanted:08/02 (Quantity not on file) Intrauterine Device Uterus Description:Device Status Te xt - IUD. Procedures Procedure Name Priority Date/Time Associated Diagnosis Comments US PELVIS TRANSVAGINAL AND TRANSABDOMINAL WITH DOPPLER RAD - Semiurgent (Fast; most ED patients; some inpatients) 02/02/2025 7:[address] ABDOMEN PELVIS WITH IV CONTRAST RAD - Semiurgent (Fast; most ED patients; some inpatients) 02/02/2025 5:31 PM CDT HC URINALYSIS AUTO W MICRO STAT 02/02/2025 4:58 PM CDT TEST, POCT, U (LAB) STAT 02/02/2025 4:58 PM CDT URINALYSIS WITH MICROSCOPIC IF INDICATED, U STAT 02/02/2025 4:58 PM CDT BACTERIAL CULTURE, AEROBIC + SUSC, URINE STAT 02/02/2025 4:58 PM CDT LIPASE, S/P STAT 02/02/2025 3:59 PM CDT COMPREHENSIVE METABOLIC PANEL, S/P STAT 02/02/2025 3:59 PM CDT CBC WITH DIFFERENTIAL, B STAT 02/02/2025 3:59 PM CDT THYROID FUNCTION CASCADE, S Routine 11/23/2024 1:43 PM CATEGORY DEVELOPMENT ANALYST Anxiety Generalized Disorder HPV WITH GENOTYPING, PCR, THINPREP Routine 08/27/2024 10:42 AM CATEGORY DEVELOPMENT ANALYST LIPID PANEL, S Routine 08/27/2024 8:40 AM CATEGORY DEVELOPMENT ANALYST Screening Lipid HIV-1/-2 AG AND AB SCREEN, PLASMA Routine 08/03/2019 8:54 AM CDT Human Immunodeficiency Virus Screening from Last 3 Months or Most Recently Relevant to Health Maintenance Results * US Pelvis Transvaginal and Transabdominal [...] 2. Fibroid uterus. us Kvng Mares M.D. IMHawa US PROCEDURES Edited Res ult - Final [...] dedicated right upper quadrant ultrasound for furtherevaluation. us Kvng Mares M.D. IMG CT PROCEDURES Final Resu lt * (ABNORMAL) Urinalysis with Microscopic if Indicated: [...] 8.0 02/02/2025 5:03 PM CDT NPRG Specific Hixson 1.020 1.001 - 1.035 02/02/2025 5:03 PM CDT NPRG Urobilinogen 0.2 0.2 - 1.0 mg/dL 02/02/2025 5:03 PM CDT NPRG Urine (Urine, Midstream) 02/02/2025 4:58 PM CDT 02/02/2025 4:58 PM CDT us Kvng Mares M.D. LAB URINE ORDERABLES Final R esult [facility] [address] [place] [address], [facility] NPRG [facility] [address] [place] [address] * (ABNORMAL) Microscopic Manual (02/02/2025 4:58 PM [...] URINE ORDERABLES Final Result Performing Organization Address City/[facility]/ZIP Co de Phone Number [facility] [address] [place] [address], [facility] NPRG [place] [address] [place] [address] * Bacterial Culture, Aerobic + Susceptibility, Urine (02/02/2025 4:58 PM CDT) Pathologist [facility] Urine Culture No growth after 1 day of incubation. 02/03/2025 3:50 PM CDT [facility] Urine (Urine, Midstream) 02/02/2025 4:58 PM CDT 02/02/2025 10:49 PM CDT Comment:Specimen Source Site : Urine us Kvng Mares M.D. LAB MICROBIOLOGY - GENERAL O RDERABLES Final Result [facility] [address] [place] [address], [facility] [place] [address] [place] [address] * Test, POCT, Urine (Lab) (02/02/2025 4:58 PM CDT) Test, POCT, U Negative 02/02/2025 5:07 PM CDT NPRG Urine (Urine, Straight Catheter) 02/02/2025 4:58 PM CDT 02/02/2025 4:59 PM CDT us Kvng Mares M.D. LAB POCT ORDERABLES - DEVICE Final Result [facility] [address] [place] [address], [facility] NPRG [facility] [address] [place] [address] * (ABNORMAL) CBC with Differential, Blood (02/02/2025 [...] ADD-ON Final Resul t Performing Organization Address City/[facility]/ZIP Co de Phone Number [facility] [address] [place] [id number], [facility] NPRG [address] [address] * Lipase (02/02/2025 3:59 PM CDT) Lipase, P 26 13 - 60 U/L 02/02/2025 4: 20 PM CDT NPRG Blood (Blood, Venous) 02/02/2025 3:59 PM CDT 02/02/2025 4:01 PM CDT us Kvgn Mares M.D. LAB BLOOD ADD-ON Final Resul t Performing Organization Address [facility] Co de Phone Number [facility] [address] [place] [id number], [facility] NPRG [address] [address] * Comprehensive Metabolic Panel (02/02/2025 3:59 PM [...] M.D. LAB BLOOD ADD-ON Final Resul t [facility] [address] [place] [address], [facility] [facility] [address] [place] [address] * Thyroid Function [place] (11/23/2024 1:43 PM CATEGORY DEVELOPMENT ANALYST) TSH, Sensitive 1.9 0.3 - 4.2 mIU/L 11/23/2024 2:49 PM CATEGORY DEVELOPMENT ANALYST DTL Blood (Blood, Venous) 11/23/2024 1:43 PM CATEGORY DEVELOPMENT ANALYST 11/23/2024 2:23 PM CATEGORY DEVELOPMENT ANALYST Agnes Tamayo APRNN.P., D.N.P. LAB BLOOD AD D-ON Final Result Performing Organization Address [facility] Co de Phone Number [facility] [address] [place] [address], [facility] [address] [place] [address] * HPV with Genotyping, PCR, ThinPrep (08/27/2024 10:42 AM CATEGORY DEVELOPMENT ANALYST) Specimen Source Cervix/Endoc ervix 08/30/2024 6:45 PM CATEGORY DEVELOPMENT ANALYST SDSC HPV High Risk type 16, PCR Negative Negative 08/30/2024 6:45 PM CATEGORY DEVELOPMENT ANALYST SDSC HPV High Risk type 18, PCR Negative Negative 08/30/2024 6:45 PM CATEGORY DEVELOPMENT ANALYST SDSC HPV other High Risk types, PCR Negative Negative 08/30/2024 6:45 PM CATEGORY DEVELOPMENT ANALYST SDSC Comment: The following Other High Risk HPV types were not detected: 31, 33, 35, 39, 45, 51, 52, 56, 58, 59, 66, and 68 This test was ordered in the context of a [facility] MAIL CARRIER TECHNICIAN Cytology case; this result should be interpreted within the context of the MAIL CARRIER TECHNICIAN cytology report. ----ADDITIONAL INFORMATION---- Testing was performed using the ynes HPV assay ([employer] This report is intended for use in clinical monitoring and management of patients. It is not intended for use in medical-legal applications. 08/27/2024 10:4 2 AM CATEGORY DEVELOPMENT ANALYST 08/29/2024 8:29 AM CATEGORY DEVELOPMENT ANALYST Chel Suarez P.A.-C., M.S. LAB MICROBIOLOGY - G ENERAL ORDERABLES Final Result Performing Organization Address City/[facility]/ZIP Co de Phone Number [facility] [address] [place] [address] [facility] [address] [place] [address] [place] [address] * (ABNORMAL) Lipid Panel (08/27/2024 8:40 AM CATEGORY DEVELOPMENT ANALYST) Triglycerides 78 mg/dL 08/27/2024 9:32 AM CATEGORY DEVELOPMENT ANALYST DTL Comment: ----REFERENCE VALUE---- Normal: <150 mg/dL Borderline High: 150-199 mg/dL High: 200-499 mg/dL Very High: > or =500 mg/dL Cholesterol, Total 137 mg/dL 2023 9:32 AM CATEGORY DEVELOPMENT ANALYST DTL Comment: ----REFERENCE VALUE---- Desirable: < 200 mg/dL Borderline High: 200 - 239 mg/dL High: > or = 240 mg/dL Cholesterol, LDL, Calculated 76 mg/dL 08/27/2024 9:32 AM CATEGORY DEVELOPMENT ANALYST DTL Comment: ----REFERENCE VALUE---- Desirable: <100 mg/dL Above Desirable: 100-129 mg/dL Borderline High: 130-159 mg/dL High: 160-189 mg/dL Very High: >=190 mg/dL ----ADDITIONAL INFORMATION---- LDL cholesterol calculated using the Sun/NIH equation. Cholesterol, HDL, S 46(L) >=50 mg/dL 08/27/2024 9:32 AM CATEGORY DEVELOPMENT ANALYST DTL Cholesterol, Non-HDL, Calculated 91 mg/dL 08/27/2024 9:32 AM CATEGORY DEVELOPMENT ANALYST DTL Comment: ----REFERENCE VALUE---- Desirable: <130 mg/dL Above Desirable: 130-159 mg/dL Borderline High: 160-189 mg/dL High: 190-219 mg/dL Very High: > or =220 mg/dL Fasting (8 HR or more) Yes 08/27/2024 8:40 AM CATEGORY DEVELOPMENT ANALYST DTL Blood (Blood, Venous) 08/27/2024 8:40 AM CATEGORY DEVELOPMENT ANALYST 08/27/2024 9:12 AM CATEGORY DEVELOPMENT ANALYST us Jayden Beavers M.D. LAB BLOOD ADD-ON Final Result [facility] [address] [place] [address], [facility] DTL [facility] [address] [place] [address] * CRISTY TRONCOSO: HIV-1/-2 Ag and Ab Screen, Plasma (08/03/2019 8:54 AM CDT) [facility] HIV-1/-2 Ag and Ab Screen, P Negative Negative 08/03/2019 11:23 AM CDT [facility] Comment: Negative result does not rule out HIV infection. If exposure to HIV infection occurred <14 days ago, contact the laboratory to request addition of HIV-1 RNA detection / quantification test (HIVQN). Blood (Blood, Venous) 08/03/2019 8:54 AM CDT 08/03/2019 10:39 AM CDT Jayden Beavers M.D. LAB MICROBIOLOGY - BLOOD XIMENA VASQUEZ Final Result [facility] [employer] [address] [place] [address] [facility] Dept[facility] of Laboratory Medicine and Pathology [address] [place] [address] from Last 3 Months or Most Recently Relevant to Health Maintenance Insurance [facility] [place] [address] [employer] Advance Directives For more information, please contact: [phone] * Full Code (Latest Code Status on File) Date Activated Date Inactivated Comments 09/08/2019 6:03 AM 09/08/2019 2:17 PM Question Answer Comments Full Code: Not Discussed Due to: Patient not available Care Teams Telescope Maintenance Relationship Specialty Start Date End Date Roberta Russo APRN, C.N.P., D.N.P. [address] [place] [address] PCP - General 06/29/24
[2025-03-09 20:50] VITALS: BP 145/85; PULSE 72; RESP 18; TEMP 36.4; O2SAT 99; BMI 29.1
[2025-03-09] MEDS: HYDROmorphone 0.5 mg/0.5 ml inj IVP ×2 (21:30→23:43)
[2025-03-09] MEDS: 0.9 % SODIUM CHLORIDE 1000 ml 1,000 ML IV (21:31)
[2025-03-09 21:36] LABS: Lactate* 1.1 mmol/L (0.5-1.9)
[2025-03-09 21:37] LABS: Basophils Absolute Auto 0.02 K/uL (0.00-0.30); Basophils Percent Auto 0.3 % (0.0-3.0); Eosinophils Percent Auto 1.5 % (0.0-7.0); Hematocrit 43.5 % (33.0-51.0); Hemoglobin* 14.4 gm/dL (12.0-16.0); Immature Granulocytes Abs Auto 0.02 K/uL (0.00-0.30); Immature Granulocytes Pct Auto 0.3 %; Lymphocytes Percent Auto 13.4 % (20-44); Mean Corpuscular HGB Conc 33 gm/dL (32-36); Mean Corpuscular Hemoglobin 30 pg (26-34); Mean Corpuscular Volume 91 fL (80-100); Monocytes Percent Auto 6.7 % (0.0-11.0); Neutrophils Percent Auto 77.8 % (42.0-72.0); Platelet Count* 224 K/uL (140-440); RDW Coefficient of Variation % 12.3 % (11.5-15.5); Red Blood Count 4.78 m/uL (4.00-5.20); White Blood Count* 6.89 K/uL (4.50-11.00)
--- NOTE | 2025-03-09 21:37 | ED_ITS ---
HPI - Abdominal Pain General Date Seen: 03/09/25 Chief Complaint: Abdominal Pain Stated Complaint: Stomach Pain Time Seen by Provider: 03/09/25 21:13 Source: patient and family Mode of arrival: ambulatory Limitations: no limitations History of Present Illness HPI narrative: Patient is a very nice 39-year-old female presents to the ER with her significant other with a history of right upper quadrant pain nausea and some jaundice. This all came on today, she has vomited a couple times, fine Zofran does help this, she also took some leftover oxycodone she had. She says she has known gallstones was in the [facility], on February [address] with gallstones. She was unable to see a surgeon as she just changed jobs and does not have medical insurance yet. Has been having pain on and off, but the pain is continuous now. She has not noted any fevers or chills associated with this any cough cold-like symptoms, dysuria frequency diarrhea associated with this. She has had previous thyroid surgery but no other surgeries she tells me she is not as she has an IUD. MD elicited complaint: abdominal pain Pertinent past history: none Location: none Severity: moderate Radiation: none Migration to: no migration Exacerbating factors: nothing Relieving factors: nothing Context: history of similar episodes Associated symptoms: denies other symptoms Related Data Date of last menstrual period: 03/22/25 Patient : No Home Medications ?Medication ?Instructions ?Recorded ?Confirmed albuterol sulfate 90 mcg/actuation inhalation 03/09/25 aerosol inhaler budesonide-formoterol HFA 160 inhalation 03/09/25 mcg-4.5 mcg/actuation aerosol inhaler bupropion HCl 150 mg 24 hr tablet, 150 mg PO DAILY 02/2603/09/25 extended release levothyroxine 100 mcg tablet 100 mcg PO DAILY 03/09/25 03/09/25 Allergies Allergy/AdvReac Type Severity Reaction Status Date / Time No Known Drug Allergies Allergy Verified 03/09/25 20:55 Review of Systems Status of ROS Reports: 10 or more systems reviewed and unremarkable except as noted in History and below PFSH PFSH Social History Smoking Status: Never smoker How often do you have a drink containing alcohol: 2-3 times a week How many standard drinks containing alcohol do you have on a typical day: 1 or 2 How often do you have six or more drinks on one occasion: Never AUDIT-C Alcohol total score: 3 Non-prescribed substance use: denies use Exam Narrative: Exam Narrative: On examination in room 5, she is pleasant alert she is in some discomfort, I would describe it as moderate, she does have some significant scleral icterus of note. TMs are normal oropharynx is normal, no redness, neck is supple, no tonsillar enlargement no lymphadenopathy anterior posterior chains, she has no meningismus, chest is good air entry bilaterally with no wheezing crackles noted her heart sounds are normal, her abdomen shows some tenderness in the right upper quadrant and a positive Moyer's test. She is otherwise soft throughout, no peritoneal signs bowel sounds are normal. Lower extremity show no pitting edema swelling, there is no evidence of any rashes. Const: Vital Signs, click to edit/add: Vital Signs - 24 hr 03/09/25 20:50 Temperature 97.6 F Pulse Rate [Pulse Oximeter] 72 Respiratory Rate 18 Blood Pressure [Ri ght Upper Arm] 145/85 H Pulse Oximetry 99 Oxygen Delivery Me thod Room Air Documenting provider has reviewed patient's vital signs: yes Course Course ED Course: Spoke to [facility], as the patient undoubtedly needs an ERCP. Given her common bile duct dilatation. At [address] Christianson recommended given a dose of Zosyn in the accepted her to the med surg bed. Vital Signs Vital signs: Initial Vital Signs Temperature 97.6 F 03/09/25 20:50 Temperature Source Temporal Artery Scan 03/09/25 20:50 Pulse Rate 72 03/09/25 20:50 Pulse Rhythm Regular 03/09/25 20:50 Respiratory Rate 18 03/09/25 20:50 Blood Pressure 145/85 H 03/09/25 20:50 Blood Pressure Mean 105 03/09/25 20:50 Blood Pressure Position Sitting 03/09/25 20:50 Pulse Oximetry 99 03/09/25 20:50 Oxygen Delivery Method Room Air 03/09/25 20:50 Vital Signs Temperature 97.6 F 03/09/25 20:50 Pulse Rate 72 03/09/25 20:50 Respiratory Rate 18 03/09/25 20:50 Blood Pressure 145/85 H 03/09/25 20:50 Pulse Oximetry 99 03/09/25 20:50 Oxygen Delivery Method Room Air 03/09/25 20:50 Temperature 97.6 F 03/09/25 20:50 Pulse Rate 72 03/09/25 20:50 Respiratory Rate 18 03/09/25 20:50 Blood Pressure 145/85 H 03/09/25 20:50 Pulse Oximetry 99 03/09/25 20:50 Oxygen Delivery Method Room Air 03/09/25 20:50 Medications Administered Medications: Discontinued Medications Generic Name Dose Route Start Last Admin Trade Name Artq PRN Reason Stop Dose Admin Hydromorphone HCl 0.5 mg 03/09/25 21:18 03/09/25 21:30 Hydromorphone 0.5 Mg/0.5 Ml Inj IVP 03/09/25 21:19 0.5 mg ONCE ONE Administration Sodium Chloride 1,000 mls @ 1,000 mls/hr 03/09/25 21:30 03/09/25 22:40 0.9 % Sodium Chloride 1000 Ml IV 03/09/25 22:29 Infused .Q1H WILLIAM Infusion MDM - Abdominal Pain MDM Narrative Medical decision making narrative: During the evaluation of this patient I considered multiple differential diagnosis including life-threatening differentials which are appendicitis, aortic aneurysm, mesenteric ischemia, bowel perforation, ectopic , volvulus and bowel obstruction, other differential diagnosis include but are not limited to inflammatory bowel disease, cholecystitis, pancreatitis, hepatitis, gastritis, GERD, diverticulitis, peptic ulcer disease, pyelonephritis/UTI, renal colic/stone, pelvic inflammatory disease, cervicitis, endometritis, intrauterine , dysfunctional uterine bleeding, ovarian cyst/torsion, spontaneous as well as other etiologies Differential Diagnosis Differential diagnosis: Likely abdominal pain Medical Records Attestation: I reviewed the patient's medical records. Lab Data Labs: Lab Results 03/09/25 Range/Units 21:10 WBC 6.89 (4.50-11.00) K/uL RBC 4.78 (4.00-5.20) m/uL Hgb 14.4 (12.0-16.0) gm/dL Hct 43.5 (33.0-51.0) % MCV 91 (80-100) fL MCH 30 (26-34) pg MCHC 33 (32-36) gm/dL RDW Coeff of Benjamin 12.3 (11.5-15.5) % Plt Count 224 (140-440) K/uL Neut % (Auto) 77.8 H (42.0-72.0) % Lymph % (Auto) 13.4 L (20-44) % Dundy % (Auto) 6.7 (0.0-11.0) % Eos % (Auto) 1.5 (0.0-7.0) % Baso % (Auto) 0.3 (0.0-3.0) % Neut # (Auto) 5.40 (1.7-7.0) K/uL Lymph # (Auto) 0.90 (0.90-2.90) K/uL Dundy # (Auto) 0.50 (0.00-0.90) K/UL Eos # (Auto) 0.10 (0.00-0.50) K/uL Baso # (Auto) 0.02 (0.00-0.30) K/uL Abs Immat Gran (auto) 0.02 (0.00-0.30) K/uL Imm/Tot Granulo (auto) 0.3 % INR 0.94 (0.91-1.10) APTT 30 (23-33) Seconds Sodium 139 (135-149) mmol/L Potassium 3.9 (3.6-5.1) mmol/L Chloride 100 (96-114) mmol/L Carbon Dioxide 30 (20-32) mmol/L Anion Gap 9 (7-15) mEq/L BUN 11 (5-24) mg/dL Creatinine 0.8 (0.5-1.5) mg/dL Estimated Creat Clear 90.13 Estimated GFR 97 ml/min Glucose 117 H (60-115) mg/dL Lactate 1.1 (0.5-1.9) mmol/L Calcium 9.3 (8.4-10.6) mg/dL Total Bilirubin 8.2 H (0.1-1.5) mg/dL Direct Bilirubin 4.3 H (0.0-0.5) mg/dL AST 380 H (12-35) U/L ALT 645 H (4-35) U/L Alkaline Phosphatase 218 H (40-150) U/L Total Protein 8.0 (6.0-8.3) g/dL Albumin 4.8 (3.3-5.0) g/dL Amylase 72 (18-89) U/L Lipase 71 (23-300) U/L Procalcitonin 0.12 (<0.50) ng/mL Ethyl Alcohol < 0.01 (0.01-0.03) % Imaging Data Ultrasound right upper quadrant: Radiologist's impression: [place] [address] Diagnostic Imaging Report Patient: Joanne Hayes MR#: [id number] : 1985 Acct:[id number] Loc: ED Service Date: 03/09/[address]: Ordering Physician: Raffi Villegas M.D. Date of Service: 03/09/25 Procedure(s): US abdomen limited Accession Number(s): [id number] cc: Aamir Goldberg M.D.; Raffi Villegas M.D.~ For Patients: As a result of the Cures Act, medical imaging exams and procedure reports are released immediately into your electronic medical record. You may view this report before your referring provider. If you have questions, please contact your health care provider. INDICATION: Right upper quadrant pain, jaundice. TECHNIQUE: Ultrasound abdomen limited. Sonographic images of the right upper quadrant were obtained using dominguez-scale and color Doppler images. COMPARISON: None. FINDINGS: Liver: Increased size measuring up to 20 cm. Unremarkable echotexture. No suspicious masses. Gallbladder: Multiple gallstones. Mildly thickened gallbladder wall measuring up to 4 mm. No substantial pericholecystic fluid. Negative sonographic Moyer`s sign per swimming pool installer and servicer. Common bile duct: CBD measures up to 9 mm and contains multiple stones. Mildly dilated appearance of the intrahepatic bile ducts as well. Pancreas: Unremarkable. Right kidney: Normal in size. Unremarkable echotexture and cortex. No suspicious masses, stones, or hydronephrosis. Vasculature: Proximal abdominal aorta and IVC are unremarkable. IMPRESSION: 1. Multiple stones seen within the CBD, which is dilated up to 9 mm. Findings are consistent with choledocholithiasis. 2. Multiple gallstones with mild gallbladder wall thickening, but negative sonographic Moyer`s sign. Findings are equivocal for acute cholecystitis. 3. Hepatomegaly. Dictated by Ricardo Reza MD @ 03/09/2025 10:53:39 PM (Electronically Signed) Discharge Plan Discharge Clinical Impression: Choledocholithiasis, Biliary colic, Jaundice, Abdominal pain Patient Disposition: Xfer Acute Care Hospital Condition: Guarded Activity Level: Light activity Diet Detail: NPO
[2025-03-09 21:38] LABS: Slide Review Reflex No
--- NOTE | 2025-03-09 21:43 | CRLHL7_ITS ---
For Patients: As a result of the Century Cures Act, medical imaging exams and procedure reports are released immediately into your electronic medical record. You may view this report before your referring provider. If you have questions, please contact your health care provider. INDICATION: Right upper quadrant pain, jaundice. TECHNIQUE: Ultrasound abdomen limited. Sonographic images of the right upper quadrant were obtained using dominguez-scale and color Doppler images. COMPARISON: None. FINDINGS: Liver: Increased size measuring up to 20 cm. Unremarkable echotexture. No suspicious masses. Gallbladder: Multiple gallstones. Mildly thickened gallbladder wall measuring up to 4 mm. No substantial pericholecystic fluid. Negative sonographic Moyer`s sign per splitting machine operator. Common bile duct: CBD measures up to 9 mm and contains multiple stones. Mildly dilated appearance of the intrahepatic bile ducts as well. Pancreas: Unremarkable. Right kidney: Normal in size. Unremarkable echotexture and cortex. No suspicious masses, stones, or hydronephrosis. Vasculature: Proximal abdominal aorta and IVC are unremarkable. IMPRESSION: 1. Multiple stones seen within the CBD, which is dilated up to 9 mm. Findings are consistent with choledocholithiasis. 2. Multiple gallstones with mild gallbladder wall thickening, but negative sonographic Moyer`s sign. Findings are equivocal for acute cholecystitis. 3. Hepatomegaly. Dictated by Ricardo Reza MD @ 03/09/2025 10:53:39 PM (Electronically Signed)
[2025-03-09 21:59] LABS: Albumin* 4.8 g/dL (3.3-5.0); Chloride* 100 mmol/L (96-114); Potassium* 3.9 mmol/L (3.6-5.1); Sodium* 139 mmol/L (135-149)
[2025-03-09 22:01] LABS: Amylase* 72 U/L (18-89)
[2025-03-09 22:02] LABS: Alanine Aminotransferase* 645 U/L (4-35); Alkaline Phosphatase* 218 U/L (40-150); Anion Gap 9 mEq/L (7-15); Aspartate Amino Transferase* 380 U/L (12-35); Bilirubin Direct* 4.3 mg/dL (0.0-0.5); Bilirubin Total* 8.2 mg/dL (0.1-1.5); Blood Urea Nitrogen* 11 mg/dL (5-24); Calcium* 9.3 mg/dL (8.4-10.6); Carbon Dioxide* 30 mmol/L (20-32); Creatinine* 0.8 mg/dL (0.5-1.5); Est. Creatinine Clearance* 90.13; Estimated Glomerular Filt Rate 97 ml/min; Glucose* 117 mg/dL (60-115); Lipase* 71 U/L (23-300)
[2025-03-09 22:06] LABS: Ethanol* < 0.01 % (0.01-0.03)
[2025-03-09 22:07] LABS: Prothrombin Time 13.4 Seconds
[2025-03-09 22:08] LABS: INR 0.94 (0.91-1.10); Partial Thromboplastin Time* 30 Seconds (23-33)
[2025-03-09 22:19] LABS: Procalcitonin* 0.12 ng/mL (<0.50)
[2025-03-09 23:15] LABS: Appearance Urine Slightly Cloudy (Clear); Bilirubin Urine 2+ (Negative); Blood Urine Negative (Negative); Color Urine Dark yellow (Yellow); Glucose Urine Negative (Negative); Ketones Urine 3+ (Negative); Leukocyte Esterase Urine Negative (Negative); Nitrite Urine Negative (Negative); Protein Urine Negative (Negative)
[2025-03-09 23:16] VITALS: BP 108/71; PULSE 83; RESP 14; O2SAT 98
[2025-03-09 23:20] LABS: RBC Urine 0-2 (0-2); WBC Urine 0-2 (0-5)
[2025-03-09 23:21] LABS: Ur HCG Qualitative* Negative (Negative)
[2025-03-09 23:21] LABS: Bacteria Urine Many
[2025-03-09] MEDS: PIPERACILLIN/TAZOBACTAM 4.5 GM in 0.9 % SODIUM CHLORIDE Mini-bag 100 ML IVPB (23:47)
== END 2025-03-10 01:07 | disposition short-term general hospital (02) ==
PROVIDERS: Emergency Provider Family Medicine; PCP Family Medicine
DX: K80.50 Calculus of bile duct without cholangitis or cholecystitis without obstruction (principal); R17 Unspecified jaundice; R11.0 Nausea
CPT/HCPCS: 36415; 76705; 80048; 80076; 81001; 81025; 82077; 82150; 83605; 83690; 84145; 85025; 85610; 85730; 87040; 87086; 96365; 96375; 99284; 99285; J1171; J2543; J7030

== ENCOUNTER 2025-03-10 00:50 | Outpatient (CLI) | payer BC, SELFPAY | END 2025-03-10 00:51 | disposition home or self-care (01) | PROVIDERS: PCP Family Medicine; Visit Provider Internal Medicine | DX: K80.50 Calculus of bile duct without cholangitis or cholecystitis without obstruction (principal); R17 Unspecified jaundice | CPT/HCPCS: A0425; A0428 ==

== ENCOUNTER 2025-03-13 11:35 | Outpatient (CLI) | payer BC, SELFPAY | END 2025-03-13 11:36 | disposition home or self-care (01) | PROVIDERS: PCP Family Medicine; Visit Provider Family Medicine | DX: E03.9 Hypothyroidism, unspecified (principal); Z13.6 Encounter for screening for cardiovascular disorders | CPT/HCPCS: 80076; 84443 ==

== ENCOUNTER 2025-05-11 15:08 | Outpatient (CLI) | payer BC, SELFPAY | END 2025-05-11 15:09 | disposition home or self-care (01) | LOC: NFLDREF 05-17 12:35 | PROVIDERS: PCP Family Medicine; Referring Provider Family Medicine; Visit Provider Family Medicine | DX: K80.50 Calculus of bile duct without cholangitis or cholecystitis without obstruction (principal) | CPT/HCPCS: 80076 ==